=== PATIENT | male | born 1985 | race Hispanic/Latino ===

== ENCOUNTER 2020-11-14 11:23 | Emergency (ER) | payer SELFPAY ==
[2020-11-14 12:12] LABS: #Lymphocytes 0.8 thou/uL (1.20-3.40); #Monocytes 0.3 thou/uL (0.11-0.59); #Neutrophils 3.8 thou/uL (1.40-6.50); %Basophils 0.2 % (0.0-1.0); %Eosinophils 0.2 % (0.0-10.0); %Lymphocytes 15.4 % (21.0-51.0); %Monocytes 6.8 % (0.0-10.0); %Neutrophils 77.4 % (42.0-75.0); Hemoglobin 14.6 g/dL (14.0-18.0); Mean Corpuscular HGB CONC 35.1 g/dL (32.0-36.0); Mean Corpuscular Hemoglobin 29.8 pg (27.0-31.0); Mean Corpuscular Volume 84.7 fL (78.0-98.0); Mean Platelet Volume 7.3 fL (7.4-10.4); Platelet Count 250 thou/uL (130-400); White Blood Cell (WBC) Count 4.9 thou/uL (4.8-10.8)
[2020-11-14 12:15] LABS: Bacteria/HPF None Seen HPF (None Seen); Bilirubin Negative (Negative); Blood, Urine Negative (Negative); Clarity Clear (Clear); Glucose, Urine (Dipstick) Normal (Negative); Ketone, Urine Negative (Negative); Leukocyte Negative Leu/uL (Negative); Nitrite Negative (Negative); Protein, Urine (Dipstick) 50 mg/dL (Neg-Trace); RBC/HPF 0-3 HPF (0-3); Squamous Epithelial None Seen HPF (0-3); Urobilinogen Normal mg/dL (Less than 2); WBC/HPF 0-3 HPF (0-3)
[2020-11-14 12:33] LABS: ALT (SGPT) 55 U/L (8-55); AST (SGOT) 43 U/L (5-34); Albumin 4.5 g/dL (3.5-5.0); Alkaline Phosphatase 71 U/L (40-110); Anion Gap 15 mmol/L (10-20); BUN (Urea Nitrogen) 9 mg/dL (8.9-20.6); Bilirubin, Total 0.5 mg/dL (0.2-1.2); Calc. Creatinine Clearance 0 mL/min (70-130); Carbon Dioxide 24 mmol/L (22-29); Chloride 99 mmol/L (98-107); Globulin 3.7 g/dL (2.4-3.5); Glucose 109 mg/dL (70-105); Lipase 26 U/L (8-78); Potassium 4.1 mmol/L (3.5-5.1); Protein, Total 8.2 g/dL (6.0-8.3); Sodium 134 mmol/L (136-145)
[2020-11-14] MEDS ORDERED: Morphine 4 MG/ML VIAL ONE (13:20)
[2020-11-14] MEDS ORDERED: Ketorolac Tromethamine 30 MG/ML VIAL ONE (13:21)
[2020-11-14] MEDS ORDERED: Ondansetron PF 4 MG/2 ML Vial ONE (13:21)
[2020-11-14] MEDS ORDERED: Acetaminophen 325 MG TAB ONE (13:21)
== END 2020-11-14 15:15 | disposition home or self-care (01) ==
LOC: ERS 11:23
DX: K80.20 Calculus of gallbladder without cholecystitis without obstruction (principal); I10 Essential (primary) hypertension
CPT/HCPCS: 36415; 76705; 80053; 81003; 81015; 83690; 85025; 96374; 96375; J1885; J2270; J2405

== ENCOUNTER 2020-11-17 11:56 | Outpatient (CLI) | payer OTHER, SELFPAY ==
[2020-11-17 11:04] VITALS: BMI 34.4
== END 2020-11-17 11:57 | disposition home or self-care (01) ==
LOC: ULT 11:56
PROVIDERS: ATTEND Surgery
DX: U07.1 COVID-19 (principal); K80.00 Calculus of gallbladder with acute cholecystitis without obstruction; K76.0 Fatty (change of) liver, not elsewhere classified; R93.2 Abnormal findings on diagnostic imaging of liver and biliary tract
CPT/HCPCS: 76705

== ENCOUNTER 2020-11-18 07:42 | Inpatient (IN) | payer OTHER ==
[2020-11-18] MEDS ORDERED: Morphine 2 MG/ML VIAL SLOW IVP SCH (09:30)
[2020-11-18] MEDS ORDERED: Morphine 2 MG/ML VIAL ONE (09:40)
[2020-11-18] MEDS ORDERED: Fentanyl 100 MCG/2 ML VIAL ONE (12:10)
[2020-11-18] MEDS ORDERED: Lidocaine 1% PF 5 ML VIAL ONE (12:10)
[2020-11-18] MEDS ORDERED: Midazolam HCl 2 mg/2 ml Vial ONE (12:10)
[2020-11-18] MEDS ORDERED: Sodium Bicarbonate 2.5 MEQ/5 ML VIAL ONE (12:10)
[2020-11-18 14:31] VITALS: BMI 35.9
[2020-11-18] MEDS ORDERED: Promethazine HCl 25 MG/ML VIAL IM PRN (15:49)
[2020-11-18] MEDS ORDERED: Mag-Al 1200 mg/1200 mg/30 ML UDCUP PO PRN (15:49)
[2020-11-18] MEDS ORDERED: Calcium Carbonate 500 MG ChewTAB PO PRN (15:49)
[2020-11-18] MEDS ORDERED: hydrALAZINE 20 MG/ML VIAL SLOW IVP PRN (15:49)
[2020-11-18] MEDS ORDERED: Ondansetron PF 4 MG/2 ML Vial IVP PRN (15:49)
[2020-11-18] MEDS ORDERED: Dextrose 5% in Water 1,000 ML IV PRN (15:49)
[2020-11-18] MEDS ORDERED: Dextrose 50% Abboject 50 ML SYRINGE SLOW IVP PRN (15:49)
[2020-11-18] MEDS ORDERED: traMADol HCl 50 MG TAB PO PRN ×2 (15:51)
[2020-11-18] MEDS ORDERED: metroNIDAZOLE 500 MG TAB PO SCH (16:30)
[2020-11-18] MEDS: Acetaminophen 325 MG TAB PO SCH ×2 (16:34→21:09)
[2020-11-18 17:57] LABS: BF Color Yellow; Body Fluid Source Abscess Fluid; Clarity Cloudy/Turbid (Clear); Tube # EDTA
[2020-11-18] MEDS: Ciprofloxacin 500 MG TAB PO SCH (21:08)
[2020-11-18] MEDS: Enoxaparin Sodium 40 MG/0.4 ML SYRINGE SC SCH (21:08)
[2020-11-18] MEDS: Famotidine 20 MG TAB PO SCH (21:08)
[2020-11-18] MEDS: metroNIDAZOLE 500 MG TAB PO SCH (21:08)
[2020-11-18] MEDS: Senokot S 8.6-50 MG TAB PO SCH (21:08)
[2020-11-19] MEDS: Acetaminophen 325 MG TAB PO SCH ×4 (03:57→22:27)
[2020-11-19 05:42] LABS: #Monocytes 0.4 thou/uL (0.11-0.59); #Neutrophils 5.9 thou/uL (1.40-6.50); %Basophils 0.1 % (0.0-1.0); %Eosinophils 0.4 % (0.0-10.0); %Lymphocytes 13.7 % (21.0-51.0); %Monocytes 5.6 % (0.0-10.0); %Neutrophils 80.3 % (42.0-75.0); Hemoglobin 14.8 g/dL (14.0-18.0); Mean Corpuscular HGB CONC 35.4 g/dL (32.0-36.0); Mean Corpuscular Volume 84.6 fL (78.0-98.0); Mean Platelet Volume 6.8 fL (7.4-10.4); Platelet Count 321 thou/uL (130-400); Red Blood Cell (RBC) Count 4.95 mill/uL (4.70-6.10); White Blood Cell (WBC) Count 7.4 thou/uL (4.8-10.8)
[2020-11-19] MEDS: Ciprofloxacin 500 MG TAB PO SCH ×2 (05:44→19:42)
[2020-11-19 05:56] LABS: Anion Gap 14 mmol/L (10-20); BUN (Urea Nitrogen) 11 mg/dL (8.9-20.6); Calc. Creatinine Clearance 192 mL/min (70-130); Calcium 8.8 mg/dL (7.8-10.44); Carbon Dioxide 23 mmol/L (22-29); Chloride 99 mmol/L (98-107); Glucose 115 mg/dL (70-105); Potassium 4.1 mmol/L (3.5-5.1); Sodium 132 mmol/L (136-145)
[2020-11-19 06:12] LABS: ALT (SGPT) 94 U/L (8-55); AST (SGOT) 51 U/L (5-34); Albumin 3.9 g/dL (3.5-5.0); Alkaline Phosphatase 144 U/L (40-110); Anion Gap 14 mmol/L (10-20); BUN (Urea Nitrogen) 12 mg/dL (8.9-20.6); Bilirubin, Total 0.5 mg/dL (0.2-1.2); Calc. Creatinine Clearance 192 mL/min (70-130); Calcium 8.8 mg/dL (7.8-10.44); Carbon Dioxide 23 mmol/L (22-29); Chloride 98 mmol/L (98-107); Globulin 3.7 g/dL (2.4-3.5); Glucose 117 mg/dL (70-105); Magnesium 2.1 mg/dL (1.6-2.6); Phosphorus 3.5 mg/dL (2.3-4.7); Protein, Total 7.6 g/dL (6.0-8.3); Sodium 131 mmol/L (136-145)
[2020-11-19] MEDS: Famotidine 20 MG TAB PO SCH ×2 (08:20→20:19)
[2020-11-19] MEDS: Cholecalciferol (Vitamin D3) 400 UNITS TAB PO SCH (08:20)
[2020-11-19] MEDS: Senokot S 8.6-50 MG TAB PO SCH ×2 (08:20→20:19)
[2020-11-19] MEDS: metroNIDAZOLE 500 MG TAB PO SCH ×3 (08:20→20:19)
[2020-11-19] MEDS: Ascorbic Acid 500 mg Chewable Tablet PO SCH (08:20)
[2020-11-19] MEDS: Zinc Sulfate 220 MG CAP PO SCH (08:21)
[2020-11-19] MEDS: Polyethylene Glycol 3350 17 GM Packet PO SCH (08:21)
[2020-11-19] MEDS ORDERED: hydrALAZINE 25 MG TAB PO PRN (17:46)
[2020-11-19] MEDS ORDERED: Dexamethasone Sod Phosphate 6 MG in Sodium Chloride 0.9% 50 ML IVPB SCH (18:00)
[2020-11-19] MEDS ORDERED: Amlodipine 5 MG TAB PO SCH (18:00)
[2020-11-19] MEDS: Enoxaparin Sodium 40 MG/0.4 ML SYRINGE SC SCH (20:19)
[2020-11-20] MEDS: Ciprofloxacin 500 MG TAB PO SCH (05:13)
[2020-11-20] MEDS: Acetaminophen 325 MG TAB PO SCH ×2 (05:13→08:44)
[2020-11-20 06:36] LABS: #Lymphocytes 0.6 thou/uL (1.20-3.40); #Monocytes 0.3 thou/uL (0.11-0.59); #Neutrophils 3.6 thou/uL (1.40-6.50); %Eosinophils 0.7 % (0.0-10.0); %Lymphocytes 12.7 % (21.0-51.0); %Monocytes 6.8 % (0.0-10.0); %Neutrophils 79.8 % (42.0-75.0); Hemoglobin 14.9 g/dL (14.0-18.0); Mean Corpuscular HGB CONC 35.1 g/dL (32.0-36.0); Mean Corpuscular Volume 85.5 fL (78.0-98.0); Mean Platelet Volume 7.1 fL (7.4-10.4); Platelet Count 419 thou/uL (130-400); RBC Distribution Width 11.8 % (11.5-14.5); Red Blood Cell (RBC) Count 4.96 mill/uL (4.70-6.10); White Blood Cell (WBC) Count 4.5 thou/uL (4.8-10.8)
[2020-11-20 07:43] VITALS: BP 135/93; TEMP 98
[2020-11-20 07:43] LABS: ALT (SGPT) 86 U/L (8-55); AST (SGOT) 56 U/L (5-34); Alkaline Phosphatase 143 U/L (40-110); Anion Gap 14 mmol/L (10-20); BUN (Urea Nitrogen) 13 mg/dL (8.9-20.6); Bilirubin, Total 0.5 mg/dL (0.2-1.2); Calc. Creatinine Clearance 192 mL/min (70-130); Calcium 9.4 mg/dL (7.8-10.44); Carbon Dioxide 23 mmol/L (22-29); Chloride 100 mmol/L (98-107); Globulin 3.8 g/dL (2.4-3.5); Glucose 138 mg/dL (70-105); Phosphorus 4.4 mg/dL (2.3-4.7); Potassium 4.5 mmol/L (3.5-5.1); Protein, Total 7.8 g/dL (6.0-8.3); Sodium 132 mmol/L (136-145)
[2020-11-20] MEDS: Zinc Sulfate 220 MG CAP PO SCH (08:43)
[2020-11-20] MEDS: Famotidine 20 MG TAB PO SCH (08:43)
[2020-11-20] MEDS: Polyethylene Glycol 3350 17 GM Packet PO SCH (08:44)
[2020-11-20] MEDS: metroNIDAZOLE 500 MG TAB PO SCH (08:44)
[2020-11-20] MEDS: Cholecalciferol (Vitamin D3) 400 UNITS TAB PO SCH (08:44)
[2020-11-20] MEDS: Ascorbic Acid 500 mg Chewable Tablet PO SCH (08:48)
[2020-11-20] MEDS: Senokot S 8.6-50 MG TAB PO SCH (08:48)
[2020-11-20] MEDS ORDERED: Dexamethasone Sod Phosphate 6 MG in Sodium Chloride 0.9% 50 ML IVPB SCH (09:00)
[2020-11-20] MEDS ORDERED: REMDESIVIR 200 MG in Sodium Chloride 0.9% 250 ML 210 ML IV SCH (09:00)
[2020-11-20] MEDS ORDERED: Amlodipine 5 MG TAB PO SCH (09:00)
[2020-11-21] MEDS ORDERED: REMDESIVIR 100 MG in Sodium Chloride 0.9% 250 ML 230 ML IV SCH (09:00)
== END 2020-11-20 12:39 | disposition home or self-care (01) | DRG 177 ==
LOC: SDC 07:42 → T4-A 14:28 → INTOOBSV 14:28 → OBSVTOIN 14:28
PROVIDERS: ADMIT Surgery; ATTEND Internal Medicine
PROC: 8E0ZXY6 Isolation (ICD-10-PCS; principal; 2020-11-19)
PROC: 0F9430Z Drainage of Gallbladder with Drainage Device, Percutaneous Approach (ICD-10-PCS; 2020-11-19)
DX: U07.1 COVID-19 (principal); J12.82 Pneumonia due to coronavirus disease 2019; J96.01 Acute respiratory failure with hypoxia; K80.00 Calculus of gallbladder with acute cholecystitis without obstruction; I10 Essential (primary) hypertension; R51.9 Headache, unspecified
CPT/HCPCS: 36415; 49020; 71045; 77002; 78227; 80053; 82728; 83735; 84100; 85025; 85060; 85379; 86140; 87070; 87205; 89051; 96372; A9537; C1729; G0378; J1100; J1650; J2250; J2270; J3010

== ENCOUNTER 2020-12-11 09:33 | Outpatient (CLI) | payer OTHER ==
[2020-12-11] MEDS ORDERED: Morphine 2 MG/ML VIAL SLOW IVP SCH (11:15)
[2020-12-11] MEDS ORDERED: Morphine 2 MG/ML VIAL ONE (11:19)
== END 2020-12-11 09:34 | disposition home or self-care (01) ==
LOC: NM 09:33
PROVIDERS: ATTEND Surgery
DX: K80.00 Calculus of gallbladder with acute cholecystitis without obstruction (principal)
CPT/HCPCS: 78227; A9537; J2270

== ENCOUNTER 2021-01-10 08:04 | Outpatient (CLI) | payer SELFPAY ==
[2021-01-10 10:37] LABS: #Basophils 0.1 10x3/uL (0.0-0.2); #Eosinphils 0.2 10x3/uL (0.0-0.5); #Monocytes 0.5 10x3/uL (0.0-1.1); %Basophils 0.8 % (0.0-2.0); %Eosinophils 3.1 % (0.0-6.0); %Lymphocytes 26.4 % (18.0-47.0); %Monocytes 7.3 % (0.0-10.0); %Neutrophils 61.9 % (40.0-75.0); Hemoglobin 14.2 g/dL (13.5-17.5); Mean Corpuscular HGB CONC 34.1 g/dL (32.0-36.0); Mean Corpuscular Hemoglobin 28.6 pg (27.0-33.0); Mean Corpuscular Volume 83.7 fl (81.2-95.1); Platelet Count 348 10x3/uL (150-450); RBC Distribution Width 13.2 % (11.5-14.5); Red Blood Cell (RBC) Count 4.97 10x6/uL (4.32-5.72); White Blood Cell (WBC) Count 6.4 10x3/uL (3.5-10.5)
[2021-01-10 11:07] LABS: ALT (SGPT) 46 U/L (8-55); AST (SGOT) 26 U/L (5-34); Albumin 4.8 g/dL (3.5-5.0); Alkaline Phosphatase 65 U/L (40-110); Anion Gap 16 mmol/L (10-20); BUN (Urea Nitrogen) 13 mg/dL (8.9-20.6); Bilirubin, Total 0.7 mg/dL (0.2-1.2); Calc. Creatinine Clearance 0 mL/min (70-130); Calcium 9.7 mg/dL (7.8-10.44); Carbon Dioxide 23 mmol/L (22-29); Chloride 105 mmol/L (98-107); Globulin 2.9 g/dL (2.4-3.5); Glucose 95 mg/dL (70-105); Potassium 4.9 mmol/L (3.5-5.1); Protein, Total 7.7 g/dL (6.0-8.3); Sodium 139 mmol/L (136-145)
== END 2021-01-10 08:05 | disposition home or self-care (01) ==
LOC: LABBT 08:04
PROVIDERS: ATTEND Surgery
DX: Z01.812 Encounter for preprocedural laboratory examination (principal); K81.0 Acute cholecystitis
CPT/HCPCS: 80053; 85025

== ENCOUNTER 2021-01-12 07:59 | Day surgery (SDC) | payer OTHER, SELFPAY ==
[2021-01-11 11:25] VITALS: BMI 33.5
[2021-01-12] MEDS ORDERED: Acetaminophen 500 MG TAB ONE (08:45)
[2021-01-12] MEDS ORDERED: ceFAZolin 2 GM/DEX 5% 100 ML BAG ONE (08:45)
[2021-01-12] MEDS ORDERED: Ketorolac Tromethamine 30 MG/ML VIAL ONE (08:45)
[2021-01-12] MEDS ORDERED: Bupivacaine 0.25% HCL 30 ML VIAL ONE (09:33)
[2021-01-12] MEDS ORDERED: Lidocaine 1% w/Epinephrine 1:100K 20 ML VIAL ONE (09:33)
[2021-01-12] MEDS ORDERED: Iothalamate Meglumine 60% 50 ML VIAL FS ONE (09:39)
[2021-01-12] MEDS ORDERED: Midazolam HCl 2 mg/2 ml Vial ONE (09:42)
[2021-01-12] MEDS ORDERED: Promethazine HCl 25 MG/ML VIAL ONE (09:42)
[2021-01-12] MEDS ORDERED: HYDROmorphone 2 MG/ML VIAL ONE (09:42)
[2021-01-12] MEDS ORDERED: SUGAMMADEX SODIUM 200 MG/2 ML VIAL ONE (09:42)
[2021-01-12] MEDS ORDERED: Fentanyl 100 MCG/2 ML VIAL ONE (09:42)
[2021-01-12] MEDS ORDERED: Rocuronium Bromide 10 MG/ML (10ML VIAL) ONE (09:47)
[2021-01-12] MEDS ORDERED: Ondansetron PF 4 MG/2 ML Vial ONE (09:47)
[2021-01-12] MEDS ORDERED: Lidocaine 1% PF 5 ML VIAL ONE (09:47)
[2021-01-12] MEDS ORDERED: Dexamethasone 20 MG/5 ML VIAL ONE (09:47)
== END 2021-01-12 14:41 | disposition home or self-care (01) ==
LOC: SDC 07:59
PROVIDERS: ATTEND Surgery
PROC: 0FT44ZZ Resection of Gallbladder, Percutaneous Endoscopic Approach (ICD-10-PCS; principal; 2021-01-12)
DX: K81.2 Acute cholecystitis with chronic cholecystitis (principal); K83.1 Obstruction of bile duct; K66.0 Peritoneal adhesions (postprocedural) (postinfection); I10 Essential (primary) hypertension; Z86.16 Personal history of COVID-19; Z79.899 Other long term (current) drug therapy
CPT/HCPCS: 76000; 88304; 93005; 93010; J1100; J1170; J1610; J1885; J2250; J2405; J2550; J3010; Q9961-U8; S0020